=== PATIENT | female | born 1955 ===

== ENCOUNTER 2017-10-18 06:17 | Day surgery (SDC) | payer BC ==
[2017-10-18] VITALS (22 sets, daily range): BP systolic 89–145; BP diastolic 45–78
[~2017-10-18] VITALS: Ht 162.6 cm; Wt 85.3 kg
[~2017-10-18 06:17] MED LIST: LEVOTHYROXINE100 MCG ORAL
[2017-10-18] MEDS ORDERED: VITAMIN D5000 UNI1 PO (06:44)
[2017-10-18] MEDS ORDERED: CALCIUM500 M3 PO (06:44)
[2017-10-18] MEDS ORDERED: cefOXitin Sod 2 GM in D5W 110 ML IVPB ONE (07:00)
[2017-10-18] MEDS ORDERED: Ropivacaine 5mg/ml Vial 30ml INJ ONE (07:03)
[2017-10-18] MEDS ORDERED: cefOXitin 2gm Inj ONE (07:14)
--- NOTE | 2017-10-18 07:29 | Pre-Procedure Note/Attestation ---
Pre-Procedure Note/Attestation Complete Prior to Procedure Planned Procedure: bilateral Procedure Narrative: Laparoscopic bilateral salpingo-oophorectomy Indications for Procedure Pre-Operative Diagnosis: Right ovarian cyst in postmenopausal patient Attestation I attest that I discussed the nature of the procedure; its benefits; risks and complications; and alternatives (and the risks and benefits of such alternatives ), prior to the procedure, with the patient (or the patient's legal parts sales representative). I attest that, if there was a reasonable possibility of needing a blood transfusion, the patient (or the patient's legal parts sales representative) was given the [facility] standardized written summary, pursuant to the [place] Blood Safety Act ([place] Health and Safety Code # 1645, as amended). I attest that I re-evaluated the patient just prior to the surgery and that there has been no change in the patient's H&P, except as documented below: NONE Emily Aguirre M.D. Oct 18, 2017 07:29
[2017-10-18] MEDS ORDERED: NS Irrig 1000ml IRRIG ONE (07:40)
[2017-10-18] MEDS ORDERED: LR 1000ml 1,000 ML IVLG SCH (08:47)
--- NOTE | 2017-10-18 08:47 | Anethesia Preoperative Eval ---
Anesthesia Pre-op PMH/ROS General Date of Evaluation: Oct 18, 2017 Time of Evaluation: 07:12 Anesthesiologist: Anjum ASA Score: ASA 2 Mallampati Score Class I : Soft palate, uvula, fauces, pillars visible Class II: Soft palate, uvula, fauces visible Class III: Soft palate, base of uvula visible Class IV: Only hard plate visible Mallampati Classification: Class II Surgeon: Preiz Diagnosis: R ovarian cyst Surgical Procedure: Bilateral laparoscopic salpingooophorectomy Anesthesia History: none Family History: no anesthesia problems Allergies: Coded Allergies: No Known Allergies (Unverified , 10/16/17) Medications: see eMAR Past Medical History Cardiovascular: Denies: HTN, CAD, SD, valve dz, arrhythmia, other Pulmonary: Denies: asthma, COPD, MILVIA, other Gastrointestinal/Genitourinary: Reports: GERD - mild Neurologic/Psychiatric: Denies: dementia, CVA, depression/anxiety, TIA, other Endocrine: Reports: hypothyroidism, Denies: DM, steroids, other HEENT: Denies: cataract (L), cataract (R), glaucoma, [place] (L), [place] (R), other Hematology/Immune: Denies: anemia, DVT, bleeding disorder, other Musculoskeletal/Integumentary: Denies: OA, RA, DJD, DDD, edema, other Other: other - overweight PMH Narrative: as above PSxH Narrative: ACDF Anesthesia Pre-op Phys. Exam Physician Exam Last Vital Signs Date Time Temp Pulse Resp B/P (MAP) Pulse Ox O2 Delivery O2 Flow Rate FiO2 10/18/17 06:55 98.0 66 17 134/78 97 Room Air Constitutional: NAD Neurologic: CN 2-12 intact Cardiovascular: RRR, no M/R/G Respiratory: CTA Gastrointestinal: other Airway Exam Mallampati Score: Class II MO: full Neck: stiff ROM: limited Teeth: missing Dentures: no upper, no lower Anesthesia Pre-op A/P Labs see chart Studies Pre-op Studies: EKG - NSR Risk Assessment & Plan Assessment: ASA 2 Plan: GA with ETT PONV prevention Status Change Before Surgery: No Pre-Antibiotics Drug: Cefoxitin 2 gr. Given Within 1 Hr of Incision: Yes Time Given: 08:16 MERRITT MCGEE M.D. Oct 18, 2017 08:47
[2017-10-18] MEDS ORDERED: DiphenhydrAMINE 50mg/ml Inj IVP PRN (09:00)
[2017-10-18] MEDS ORDERED: Metoclopramide 10mg/2ml Inj IVP PRN ×2 (09:00→09:45)
[2017-10-18] MEDS ORDERED: Ketorolac 30mg Inj IV PRN (09:00)
[2017-10-18] MEDS ORDERED: Meperidine 50mg/ml Inj(FOR RIGORS ONLY) IV PRN (09:00)
[2017-10-18] MEDS ORDERED: Hydromorphone 0.5mg/0.5ml inj IVP PRN (09:00)
[2017-10-18] MEDS ORDERED: Midazolam 2mg/2ml Inj IVP PRN (09:00)
[2017-10-18] MEDS ORDERED: Norco 5mg/325mg tab ORAL PRN (09:45)
[2017-10-18] MEDS ORDERED: D5 1/2NS 1,000 ML IV SCH (09:45)
[2017-10-18] MEDS ORDERED: Tylenol #3 tab (300mg/30mg) ORAL PRN (09:45)
[2017-10-18] MEDS ORDERED: HYDROmorphone 1mg/ml Carpuject SUBQ PRN (09:45)
--- NOTE | 2017-10-18 09:50 | Brief Operative Note ---
Immediate Post Operative Note Operative Note Pre-op Diagnosis: Right ovarian cyst in postmenopausal patient Procedure: Laparoscopic bilateral salpingo-oophorectomy Post-op Diagnosis: Right ovarian cyst in postmenopausal patient Post-op Diagnosis: same as pre-op Surgeon: Emily Aguirre MD Automotive Dismantler: Della Feliciano MD ([place]) Anesthesiologist: Dr. Valero Anesthesia: general Specimen: yes - right tube and ovary, left tube and ovary Complications: none Condition: stable Fluids: 1000cc crystalloid Estimated Blood Loss: minimal - 10cc Drains: none Packing: None Implant(s) used?: No Emily Aguirre M.D. Oct 18, 2017 09:50
--- NOTE | 2017-10-18 10:53 | Immediate Post-Op Evaluation ---
Immediate Post-Op Evalulation Immediate Post-Op Evalulation Procedure: Bilateral laparoscopic oophorectomy Date of Evaluation: Oct 18, 2017 Time of Evaluation: 09:50 IV Fluids: 1000 Blood Products: none Estimated Blood Loss: <50 Urinary Output: 350 Blood Pressure Systolic: 132 Blood Pressure Diastolic: 76 Pulse Rate: 74 Respiratory Rate: 20 O2 Sat by Pulse Oximetry: 99 Temperature (Fahrenheit): 97.6 Pain Score (1-10): 2 Nausea: No Vomiting: No Complications none Patient Status: reacts, patent, extubated, none Hydration Status: adequate MERRITT MCGEE M.D. Oct 18, 2017 10:53
--- NOTE | 2017-10-18 15:52 | 48 Hour Post Anesthesia Eval ---
Post Anesthesia Evaluation Procedure: Bilateral laparoscopic oophorectomy Date of Evaluation: Oct 18, 2017 Time of Evaluation: 15:51 Blood Pressure Systolic: 116 0: 72 Pulse Rate: 58 Respiratory Rate: 20 Temperature (Fahrenheit): 97.6 O2 Sat by Pulse Oximetry: 99 Airway: patent Nausea: No Vomiting: No Pain Intensity: 2 Hydration Status: adequate Cardiopulmonary Status: stable Mental Status/LOC: patient returned to baseline Follow-up Care/Observations: n/a Post-Anesthesia Complications: none Follow-up care needed: ready to discharge MERRITT MCGEE M.D. Oct 18, 2017 15:52
--- NOTE | 2017-10-21 10:12 | Operative Note - PDOC ---
Operative Note Operative Note Date of Operation/Procedure: Oct 18, 2017 Chief Complaint: right ovarian cyst, postmenopausal Pre-op Diagnosis: Right ovarian cyst in postmenopausal patient Procedure: Laparoscopic bilateral salpingo-oophorectomy Post-op Diagnosis: Right ovarian cyst in postmenopausal patient Post-op Diagnosis: same as pre-op Surgeon: Emily Aguirre MD Benefits Advisor: Della Feliciano MD ([place]) Anesthesiologist: Dr. Valero Anesthesia: general Specimen: yes - right tube and ovary, left tube and ovary Complications: none Condition: stable Fluids: 1000cc crystalloid Estimated Blood Loss: minimal - 10cc Drains: none Packing: None Implant(s) used?: No Indications for Procedure 62yo postmenopausal female with right ovarian cyst. Description of Procedure The patient was taken to the operating room in dorsal supine position where general endotracheal anesthesia was obtained without difficulty. The patient was placed in dorsal lithotomy and then prepped and draped in the usual sterile fashion. A hidalgo catheter was placed in the urinary bladder. A time out was performed to confirm correct patient and procedure. Attention was turned to the pelvis. A speculum was placed and clear visualization of the cervix was noted. The cervix was grasped with a single toothed tenaculum and then was dilated to accommodate the uterine manipulator which was placed without difficulty. All instruments were removed from the vagina and attention was turned to the abdomen. An 11mm incision was made in the umbilicus and the Veress needle was used to insufflate the abdomen with carbon dioxide gas. The Veress needle was removed and using a visiport the abdomen was entered under direct visualization. The operative laparoscope was introduced and no hard due to the procedure done was noted. The patient was placed in Trendelenberg and the abdomen and pelvis were inspected. Two 5mm accessory ports were placed, one in the left lower quadrant and another suprapubically after instillation of local anesthetic. The left tube was grasped and elevated to allow clear visualization of the infundibulopelvic ligament. The IP was grasped at its medial edge (closest to the ovary), cauterized using bipolar energy, and then cut. The mesosalpinx was divided along an avascular plane using bipolar energy and cut. The utero-ovarian ligament was coagulated and cut, and the tube was freed from the uterus at the level of the cornua. Hemostasis was noted. The same procedure was repeated on the right. Hemostasis was noted. The specimens were unable to be removed from the umbilical port, thus the suprapubic port was expanded to accomodate a 10mm trochar and an endocatch bag was introduced under direct visualization. The specimens were placed in the endocatch bag and easily removed from the suprapubic port site. Copious irrigation of the cul-de-sac was performed and excellent hemostasis was noted after additional use of bipolar energy on the pedicles. The trochars were removed under direct visualization. The 10mm fascial incisions were reapproximated with 0-Vicryl. The skin was reapproximated with 4-0 Vicryl at the umbilicus and 4-0 Monocryl at the accessory port sites. Local anesthetic was injected in the umbilicus. Mastisol and steri-strips were applied followed by tape. Attention was turned back to the pelvis where the uterine manipulator was removed without difficulty. Hemostasis was noted. The patient was awakened from anesthesia without complication and transported to the recovery room in stable condition. Patient will be discharged home from PACU. Della [place], was present and scrubbed for the entire duration of the procedure. Emily Aguirre M.D. Oct 21, 2017 10:12
== END 2017-10-18 15:00 | disposition home or self-care (01) ==
LOC: SUR 06:17
DX: N83.201 Unspecified ovarian cyst, right side (principal); K21.9 Gastro-esophageal reflux disease without esophagitis; E03.9 Hypothyroidism, unspecified
CPT/HCPCS: 58661; J0694; J1170; J1885; J2765; J2795; 94003; 94150